=== PATIENT | female | born 1995 | race Caucasian/White ===

== ENCOUNTER 2018-06-24 16:47 | Emergency (ER) | payer BC ==
[2018-06-24 16:55] VITALS: BP 133/95
[2018-06-24] MEDS ORDERED: IBUPROFEN 600 MG TAB PO ONE ×2 (17:21→17:22)
--- NOTE | 2018-06-24 17:26 | EDPHY ---
H & P Stated Complaint: L knee injury skiing today--denies other injuries Time Seen by Provider: 06/24/18 17:26 HPI/ROS: HPI: This is a 22-year-old female who presents with Chief Complaint: Left knee injury Location: Left knee Quality: Injury Duration: 4 hr prior to arrival Signs and Symptoms: No bleeding, no radiation, no numbness, no weakness, no tingling, no incontinence, no decreased range of motion, + swelling, + pain, no fever Timing: Acute Severity: 09/07 Context: Patient was skiing at [place] when she accidentally crossed her skis well traveling downhill and twisted her left knee. She fell down onto the ground but denies hitting her head or any other injuries. Few scares helped her up and she was able to ski down the hill on her own. She is not nose left knee discomfort until she was getting into her jeep. She then noted left knee swelling and decreased range of motion secondary to pain with flexion. Denies radiation, weakness, paresthesias. Modifying Factors: None Comment: ROS: A comprehensive 10 system review of systems is otherwise negative aside from elements mentioned in the history of present illness. MEDICAL/SURGICAL/SOCIAL HISTORY: Medical history: Attention deficit hyperactivity disorder, depression. Takes extended control. Surgical history: Denies Social history: Patient works as audiology technologist. CONSTITUTIONAL: Tearful, well-developed, well-nourished young adult white female, awake and alert, no obvious distress HEENT: Atraumatic and normocephalic. NECK: supple, no midline tenderness, flexion 45 degrees, extension 45 degrees, right and left lateral flexion 45 degrees. No meningismus. Cardiovascular: Normal S1/S2, regular rate, regular rhythm, without murmur rub or gallop. PULMONARY/CHEST: Symmetrical and nontender. no crepitus. Clear to auscultation bilaterally. Good air movement. No accessory muscle usage. ABDOMEN: Soft, nondistended, nontender, no ecchymosis. PELVIC: no pain with rocking; bilateral hips flexion 125 degrees, extension 30 degrees, with no pain internal rotation and no pain external rotation. BACK: No midline tenderness, no paraspinous spasm, deep tendon reflexes 2/2, no pain with straight leg raise, No foot drop. Achilles reflexes are equal bilaterally. Able to walk on heels and toes without difficulty. EXTREMITIES: 2/2 pulses, strength 5/5, left KNEE: Moderate effusion, no medial and lateral joint line tenderness, full extension to 180, flexion to 90 . Moderate pain with varus and valgus exam. Mild pain with anterior drawer or posterior drawer test. Extensor mechanism intact. DIP/PIP/MCP flexion/extension intact with good light touch sensation. no deformities, no clubbing, no cyanosis or edema. NEUROLOGICAL: no focal neuro deficits. GCS 15. Light touch sensation intact. SKIN: Warm and dry, no erythema. no rash. Good capillary refill. Source: Patient Exam Limitations: No limitations - Personal History LMP (Females 10-55): Extended Cycle BCP/Inj - Medical/Surgical History Hx Asthma: No Hx Chronic Respiratory Disease: No Hx Diabetes: No Hx Cardiac Disease: No Hx Renal Disease: No Hx Cirrhosis: No Hx Alcoholism: No Hx HIV/AIDS: No Hx Splenectomy or Spleen Trauma: No Other PMH: ADHD, depression - Social History Smoking Status: Never smoked Constitutional: Initial Vital Signs Temperature (C) 36.5 C 06/24/18 16:51 Heart Rate 112 H 06/24/18 16:51 Respiratory Rate 18 06/24/18 16:51 Blood Pressure 133/95 H 06/24/18 16:51 O2 Sat (%) 95 06/24/18 16:51 O2 Delivery Mode Room Air Allergies/Adverse Reactions: No Known Allergies Allergy (Unverified 11/09/15 18:57) Home Medications: Medication Instructions Recorded Concerta 06/24/18 Medical Decision Making - Diagnostics Imaging Results: Imaging Impressions Knee X-Ray 06/24/18 17:15 Impression: 1. Lateral focal tibial plateau fracture with minimal depression. 2. Large effusion suprapatellar bursa. Procedures: Procedure: Splint placement. A left knee immobilizer and crutches were applied by the Emergency Room bicycle service technician. After application of the splint I returned and re-examined the patient. The splint was adequately immobilizing the joint and distal to the splint the patient's circulation and sensation was intact. ED Course/Re-evaluation: Vital signs reviewed and show mild tachycardia likely due to pain. Given ibuprofen and ice pack applied Left knee x-ray my read via PAC shows nondisplaced lateral tibial plateau fracture and effusion Suspect internal derangement LCL; lateral meniscus; ACL as well as nondisplaced lateral anterior tib fracture with no depression Placed in knee immobilizer, crutches, orthopedic follow-up Politely declined any stronger pain medications than Tylenol and ibuprofen. Work note provided per request. No signs of neurovascular compromise/tenting of skin/compartment syndrome/ extremities and joints examined above and below area of concern and are neurovascularly intact. This patient was seen under the supervision of my secondary supervising physician. I evaluated care for this patient with attending. Discussed this patient with Dr. Gambino. Differential Diagnosis: Knee injury while [] including but not limited to fracture, ACL injury, contusion, muscular strain, and meniscus injury. - Data Points Medications Given: Discontinued Medications Ibuprofen (Motrin) 600 mg PO EDNOW ONE Stop: 06/24/18 17:23 Last Admin: 06/24/18 17:24 Dose: 600 mg Departure - Departure Disposition: Home, Routine, Self-Care Clinical Impression: Effusion of left knee joint Sprain of left knee Qualifiers: Encounter type: initial encounter Involved ligament of knee: lateral collateral ligament Qualified Code(s): S83.422A - Sprain of lateral collateral ligament of left knee, initial encounter Internal derangement of knee, acute Qualifiers: Laterality: left Qualified Code(s): M23.92 - Unspecified internal derangement of left knee Tibial plateau fracture, left Qualifiers: Encounter type: initial encounter Fracture type: closed Qualified Code(s): S82.142A - Displaced bicondylar fracture of left tibia, initial encounter for closed fracture Condition: Good Instructions: Knee Sprain (ED), Leg Fracture (ED), Crutch Instructions (ED), Knee Immobilizer (ED), Swollen Knee Joint (ED) Additional Instructions: Wear the knee immobilizer while out of bed until seen by Orthopedics. Use crutches to aid ambulation. Start with toe-touch weight-bearing status. Take Tylenol 650 mg every 4 hours and/or Ibuprofen 600 mg every 8 hours with food as needed for pain. Apply ice for 30 minutes at a time; 2-3 times per day for the next 1-2 days. Follow up with Orthopedics in 3-5 days if symptoms persist at which time they will evaluate and recommend with you if conservative management versus MRI versus surgery is indicated. Referrals: Pati Mijares MD [Primary Care Provider] - As per Instructions Norm Deras MD [Medical Doctor] - As per Instructions Stand Alone Forms: Work Excuse
== END 2018-06-24 18:14 | disposition home or self-care (01) ==
DX: S83.422A Sprain of lateral collateral ligament of left knee, initial encounter (principal); S82.142A Displaced bicondylar fracture of left tibia, initial encounter for closed fracture; M23.92 Unspecified internal derangement of left knee; V00.321A Fall from snow-skis, initial encounter; Y93.23 Activity, snow (alpine) (downhill) skiing, snowboarding, sledding, tobogganing and snow tubing; Y92.828 Other wilderness area as the place of occurrence of the external cause
CPT/HCPCS: L1830